=== PATIENT | male | born 1945 | race Caucasian/White ===

== ENCOUNTER 2025-03-05 21:12 | Inpatient (IN) | payer MEDICARE, MEDICAID ==
[~2025-03-05] VITALS: Ht 172.7 cm; Wt 73.5 kg
[2025-03-05 21:27] VITALS: O2SAT 99
[2025-03-05 22:24] LABS: HEMATOCRIT. 38.2 % (42.0-52.0); HEMOGLOBIN. 13.3 g/dL (14.0-18.0); MEAN PLATELET VOLUME 8.4 fl (7.4-10.4); PLATELET 223 x1000/uL (130-400); RED BLOOD CELL COUNT 3.80 mill/uL (4.7-6.1); RED CELL DISTRIBUTION WIDTH 12.3 % (11.6-14.6)
[2025-03-05 22:46] LABS: CREATININE 0.8 mg/dL (0.6-1.3)
[2025-03-05 22:47] LABS: UREA NITROGEN BLOOD 6 mg/dL (9-23)
[2025-03-05 23:05] LABS: LYMPHOCYTES % MANUAL 9.0 % (20.0-50.0); MONOCYTES % MANUAL 3.0 % (2.0-8.0); NEUTROPHILS % MANUAL 88.0 % (45.0-75.0); PLATELET ESTIMATE NORMAL
[2025-03-05] MEDS: POTASSIUM CHLORIDE 20MEQ/PACKET PO SCH (23:24)
[2025-03-05] MEDS: SODIUM CHLORIDE 0.9% 500 ML IV ONE (23:24)
[2025-03-06 00:54] LABS: PHOSPHORUS 1.6 mg/dL (2.5-4.9); TROPONIN I HIGH SENSITIVITY 9 ng/L (3.0-53)
[2025-03-06 01:00] VITALS: BP 136/72; PULSE 90; RESP 18; TEMP 35.9732
[2025-03-06 01:27] LABS: CLARITY URINE CLEAR (CLEAR); COLOR URINE YELLOW (YELLOW); GLUCOSE URINE NEGATIVE (NEGATIVE); KETONES URINE 1+ (NEGATIVE); LEUKOCYTE ESTERASE URINE NEGATIVE (NEGATIVE); NITRITE URINE NEGATIVE (NEGATIVE); OCCULT BLOOD URINE NEGATIVE (NEGATIVE); PH URINE 6.5 (4.5-8.0); PROTEIN URINE 1+ (NEGATIVE); SPECIFIC GRAVITY URINE 1.014 (1.005-1.030); UROBILINOGEN URINE 1.0 E.U./dL (0.2-1.0)
[2025-03-06 01:39] LABS: *AMPHETAMINES SCREEN URINE NEGATIVE (NEGATIVE); *BENZODIAZEPINES SCREEN URINE NEGATIVE (NEGATIVE); RBC URINE NONE SEEN /hpf (0-2); SQUAMOUS EPITHELIAL CELL URINE NONE SEEN /lpf (RARE/1+); WBC URINE 0-2 /hpf (0-2)
[2025-03-06 01:40] LABS: *BARBITURATES SCREEN URINE NEGATIVE (NEGATIVE); *COCAINE SCREEN URINE NEGATIVE (NEGATIVE); BACTERIA URINE RARE; CANNABINOID URINE SCREEN NEGATIVE (NEGATIVE); ECSTASY MDMA SCREEN URINE NEGATIVE (NEGATIVE); METHADONE URINE SCREEN NEGATIVE (NEGATIVE); OPIATES URINE SCREEN NEGATIVE (NEGATIVE); PHENCYCLIDINE URINE SCREEN NEGATIVE (NEGATIVE)
[2025-03-06] MEDS ORDERED: CLONIDINE 0.1MG TABLET PO PRN (03:15)
[2025-03-06] MEDS ORDERED: ONDANSETRON HCL 4MG/2ML INJ IV PRN (03:15)
[2025-03-06] MEDS ORDERED: DOCUSATE SODIUM 100MG CAPSULE PO PRN (03:15)
[2025-03-06] MEDS ORDERED: IPRATROPIUM/ALBUTEROL 0.5-3(2.5)MG/3ML NEB HHN PRN (03:15)
[2025-03-06] MEDS ORDERED: ACETAMINOPHEN 325MG TABLET PO PRN ×2 (03:15)
[2025-03-06] MEDS: MAGNESIUM 2 G PREMIX 50 ML IV NR ×2 (03:59→10:20)
[2025-03-06] MEDS: SODIUM CHLORIDE 0.9% 1,000 ML IV SCH (06:28)
[2025-03-06] MEDS ORDERED: LORAZEPAM 2MG/ML UD SYRINGE IV PRN (06:45)
[2025-03-06 08:00] VITALS: BP 147/81; PULSE 81; RESP 16; TEMP 36.6; O2SAT 98
[2025-03-06] MEDS ORDERED: SODIUM PHOSPHATE 30 MMOL in DEXT 5% WATER 490 ML IV NR (08:00)
[2025-03-06] MEDS: PANTOPRAZOLE SODIUM 40 MG/VIAL IV SCH (09:30)
[2025-03-06] MEDS: FOLIC ACID 1 MG, THIAMINE HCL 100 MG, MVI, ADULT NO.1 10 ML in DEXTROSE 5% WATER 1,000 ML IV NR (09:30)
[2025-03-06 10:50] LABS: BASOPHILS % 0.4 % (0.0-2.0); EOSINOPHILS % 0.9 % (0.0-5.0); HEMATOCRIT. 38.7 % (42.0-52.0); HEMOGLOBIN. 13.5 g/dL (14.0-18.0); LYMPHOCYTES % 11.4 % (20.0-50.0); MEAN PLATELET VOLUME 8.9 fl (7.4-10.4); MONOCYTES % 10.1 % (2.0-8.0); NEUTROPHILS % 77.2 % (40.0-76.0); PLATELET 212 x1000/uL (130-400); RED BLOOD CELL COUNT 3.83 mill/uL (4.7-6.1); RED CELL DISTRIBUTION WIDTH 12.3 % (11.6-14.6)
[2025-03-06 11:17] LABS: CREATININE 0.7 mg/dL (0.6-1.3); T4 FREE 1.31 ng/dL (0.89-1.76); TRIGLYCERIDE 70 mg/dL (0-150); UREA NITROGEN BLOOD 6 mg/dL (9-23)
[2025-03-06 11:18] LABS: LDL CHOLESTEROL 124 mg/dL (5-100)
[2025-03-06 12:00] VITALS: BP 150/75; PULSE 75; RESP 18; TEMP 36.4; O2SAT 98
[2025-03-06 12:08] LABS: FOLIC ACID (FOLATE) SERUM > 20.00 ng/mL (>5.38)
[2025-03-06 12:09] LABS: VITAMIN B12 SERUM 352 pg/mL (211-911)
[2025-03-06] MEDS: POTASSIUM PHOSPHATE 30 MMOL in SODIUM CHLORIDE 0.9% 500 ML IV ONE (13:00)
[2025-03-06] MEDS: AMLODIPINE 10MG TABLET PO SCH (14:49)
[2025-03-06] MEDS: CEFTRIAXONE 1GM/50ML 50 ML IV NR (15:32)
[2025-03-06 16:00] VITALS: BP 123/70; PULSE 123; RESP 16; TEMP 36.7; O2SAT 97
[2025-03-06 20:00] VITALS: BP_SYST 125; BP_SYST 90; BP_DIAS 60; BP_DIAS 70; PULSE 80; RESP 17; TEMP 36.7; O2SAT 97
[2025-03-07] VITALS: BP 126/79; PULSE 74; RESP 17; TEMP 36.6; O2SAT 95
[2025-03-07 04:00] VITALS: BP 131/70; PULSE 63; RESP 17; TEMP 36.4; O2SAT 100
[2025-03-07 06:45] LABS: PLATELET 200 x1000/uL (130-400); RED BLOOD CELL COUNT 3.94 mill/uL (4.7-6.1); RED CELL DISTRIBUTION WIDTH 12.7 % (11.6-14.6)
[2025-03-07 07:04] LABS: CREATININE 0.7 mg/dL (0.6-1.3)
[2025-03-07 07:05] LABS: UREA NITROGEN BLOOD 5 mg/dL (9-23)
[2025-03-07 08:00] VITALS: BP 112/62; PULSE 94; RESP 16; TEMP 36.7; O2SAT 97
[2025-03-07 09:40] LABS: SODIUM URINE RANDOM 94.0 mEq/L
[2025-03-07 09:49] LABS: CREATININE URINE RANDOM 74.6 mg/dL
[2025-03-07 09:51] LABS: OSMOLALITY URINE 458.0 mOsm/kg (500-850)
[2025-03-07 12:00] VITALS: BP 107/65; PULSE 72; RESP 16; TEMP 36.8; O2SAT 98
[2025-03-07 16:00] VITALS: BP 127/69; PULSE 82; RESP 16; TEMP 36.7; O2SAT 99
[2025-03-07 20:00] VITALS: BP 114/68; PULSE 84; RESP 17; TEMP 36.7; O2SAT 98
[2025-03-08] VITALS (7 sets, daily range): BP systolic 110–133; BP diastolic 49–74; PULSE 73–101; RESP 16–19; TEMP 36.2–36.9; O2SAT 98–100
[2025-03-08 07:07] LABS: PLATELET 200 x1000/uL (130-400); RED BLOOD CELL COUNT 3.99 mill/uL (4.7-6.1); RED CELL DISTRIBUTION WIDTH 12.6 % (11.6-14.6)
[2025-03-08 07:28] LABS: CREATININE 0.8 mg/dL (0.6-1.3)
[2025-03-08 07:29] LABS: UREA NITROGEN BLOOD 10 mg/dL (9-23)
[2025-03-08] MEDS ORDERED: KEPP500 PO (17:18)
[2025-03-08] MEDS: LEVETIRACETAM 500MG TABLET PO SCH (20:29)
== END 2025-03-08 23:50 | disposition home or self-care (01) | DRG 101 ==
LOC: ER 21:12 → 5WST 03-06 00:09 → EDBEDREQDT 03-06 00:29 → EDBEDREQ 03-06 00:29 → EDBEDREQTM 03-06 00:29 → ENRESERV 03-06 00:36
PROVIDERS: ADMIT Internal Medicine; ATTEND Internal Medicine
DX: R56.9 Unspecified convulsions (principal); E87.1 Hypo-osmolality and hyponatremia; D53.9 Nutritional anemia, unspecified; F10.10 Alcohol abuse, uncomplicated; E83.42 Hypomagnesemia; E87.6 Hypokalemia; R73.9 Hyperglycemia, unspecified; D72.829 Elevated white blood cell count, unspecified
CPT/HCPCS: 36415; 71045; 80048; 80061; 80305; 80320; 81003; 82550; 82570; 82607; 82746; 83036; 83735; 83930; 83935; 84100; 84145; 84295; 84300; 84439; 84443; 84484; 85025; 85027; 85379; 93005; 97162; 99285; J0696; J2470; J3411; J3475; J3490; J7040; J7060; J7070; G0480